=== PATIENT | male | born 1990 | race Caucasian/White ===

== ENCOUNTER → 2021-05-09 | Outpatient (CLI) | payer SELFPAY ==
[~2021-05-09] MED LIST: MOTRIN800 MG PO; VICODIN 5/500 505 MG PO; VICODIN 500 MG-1 TAB PO; ZITHROMAX Z PA250 MG PO
== END | disposition home or self-care (01) ==
LOC: RAD 13:36
PROVIDERS: ATTEND Family Medicine
DX: Z00.00 Encounter for general adult medical examination without abnormal findings (principal)

== ENCOUNTER 2021-05-26 06:08 | Emergency (ER) | payer BC ==
[2021-05-26] MEDS ORDERED: SILVADENE,SSD C50 GM T (06:23)
== END 2021-05-26 06:59 | disposition home or self-care (01) ==
LOC: ED 06:08
DX: T23.302A Burn of third degree of left hand, unspecified site, initial encounter (principal); T23.301A Burn of third degree of right hand, unspecified site, initial encounter; Z90.89 Acquired absence of other organs; Z98.890 Other specified postprocedural states; X19.XXXA Contact with other heat and hot substances, initial encounter; Y93.89 Activity, other specified; Y92.89 Other specified places as the place of occurrence of the external cause; Y99.8 Other external cause status